=== PATIENT | male | born 1975 | race Hispanic/Latino ===

== ENCOUNTER 2017-05-30 22:19 | Inpatient (IN) ==
[2017-05-30] MEDS ORDERED: NORMAL SALINE 10 ML SYRINGE FLUSH IVP PRN (23:01)
[2017-05-30] MEDS ORDERED: ONDANSETRON 4 MG/2 ML VIAL IVP ONE (23:01)
[2017-05-30] MEDS ORDERED: Sodium Chloride 0.9% 1,000 ML PRIMARY IV ONE (23:01)
[2017-05-30] MEDS ORDERED: MORPHINE SULFATE 4 MG/1 ML IVP ONE (23:01)
[2017-05-30 23:05] LABS: BASOPHILS # (AUTO) 0.06 10*3/UL; BASOPHILS % (AUTO) 0.6 % (0-1); EOSINOPHILS # (AUTO) 0.23 10*3/UL; EOSINOPHILS % (AUTO) 2.1 % (0-8); Hematocrit [HCT] 43.3 % (42.0-52.0); Hemoglobin [HGB] 15.2 g/dL (14.0-18.0); LYMPHOCYTES # (AUTO) 1.55 10*3/uL; MEAN CORPUSCULAR HEMOGLOBIN 31.7 PG (27-31); MEAN CORPUSCULAR HGB CONC 35.1 g/dL (33-37); MEAN CORPUSCULAR VOLUME 90.2 FL (80-90); MEAN PLATELET VOLUME 10.7 FL (7.4-12.2); MONOCYTES # (AUTO) 1.11 10*3/UL (0.3-0.8); MONOCYTES % (AUTO) 10.3 % (5-15); NEUTROPHILS # (AUTO) 7.75 10*3/UL; NEUTROPHILS % (AUTO) 72.3 % (50-80); PLATELET MORPHOLOGY COMMENT NORMAL MORPHOLOGY (NORM); RBC MORPHOLOGY COMMENT NORMAL MORPHOLOGY (NORM); WBC MORPHOLOGY COMMENT NORMAL MORPHOLOGY (NORM)
[2017-05-30 23:06] LABS: BLOOD UREA NITROGEN 12 mg/dL (7-22); SERUM ALBUMIN 4.3 g/dL (3.5-4.8)
--- NOTE | 2017-05-30 23:40 | PDOC ---
Lower Extremity Problem HPI - General Chief Complaint: Lower Extremity Problem/Injury Stated Complaint: possible clot in left leg Date Seen by Provider: 05/30/17 Time Seen by Provider: 22:50 Source: POSITIVE: Patient Exam Limitations: POSITIVE: No limitations Nurse's Notes Reviewed & Considered: Yes - History of Present Illness Initial Comments: The patient is a 41-year-old male who presents to the emergency department with complaints of increased left leg pain and swelling. He had several lesions removed from his left leg per Dr. Jacobo in March. These lesions were identified as panniculitis on biopsy. The wounds themselves never did heal and all of them ended up opening up. He was on some antibiotics for about a month and just finished those about a week ago. Over the past day or 2 he's developed increased pain and swelling to the left leg as well as some redness in the lower leg. Today he states that he has not felt well in general. He has had some subjective chills. He denies fever. He denies chest pain or shortness of breath. He does not have any history of blood clots although his mom apparently has a history of blood clots. He denies any other significant medical history. - Patient Home Medications Home Medications: Home Medications ibuprofen 800 mg tablet 800 mg PO TID PRN #120 tab 05/10/17 - Patient Allergies Allergies/Adverse Reactions: Allergies 3 Allergy/AdvReac Type Severity Reaction Status Date / Time No Known Allergies Allergy Verified 05/30/17 22:28 Past Medical History - heen HEENT History: Denies History Cardiovascular History: Hypertension Additional Cardiovasular History: CP Respiratory History: Denies History Additional Respiratory History: START 1 MONTH AGO Gastrointestinal History: Gallbladder Disease, Other (please comment) Additional Gastrointestinal History: LAP BAND/ Chronic diarrhea Genitourinary History: Denies History Endocrine History: Denies History Musculoskeletal History: Gout Prosthesis or Implant: Yes (LAP BAND) Neurological History: Denies History Blood Disorders: Denies History Psychiatric History: Denies History History of Sexually Transmitted Diseases: No Cancer History: Denies History In Past Year Been Physically Harmed or Verbally Threatened: No History of MDRO: No History of Other Communicable Diseases: No Tobacco Use: Never Smoker Alcohol Use: Occasionally Type of alcohol normally used: Beer In the Past 12 Months, Have Used or Abuse Any Substance: None Previous Surgical History: Yes Type / Date of Surgery: LAP BAND, RUPESH, KNEE, Anesthesia Reactions: No Malignant Hyperthermia: No Significant Family History: Heart disease, Cancer Additional Family History: Lupus Past Medical History Reviewed: Reviewed - No Changes ROS - Limitations ROS Limitations: No Limitations Constitution: REPORTS: Chills. DENIES: Fever Cardiovascular: REPORTS: Denies Cardiac Symptoms. DENIES: Chest Pain Respiratory: REPORTS: Denies Resp Symptoms. DENIES: Shortness Of Breath Neurological: REPORTS: Denies Neuro Symptoms Gastrointestinal: REPORTS: Denies GI Symptoms Lower Ext Problem Exam - General Appearance General Appearance: POSITIVE: Alert, Cooperative, No Acute Distress - Extremities Lower Extremity: POSITIVE: Other (Examination of the left leg reveals 4 open wounds approximately 3 cm in length and 1.5-2 cm in depth one of these is on the lateral aspect of his mid lower leg, he does have surrounding erythema and induration extending to the calf and lateral aspect of his leg, good dorsalis pedis pulse in left foot, all of the wounds have granulation tissue in them with no current drainage) Images - Uploaded Photos Uploaded Photos: Lower Ext Problem Progress - Results Reviewed by me Xrays/CTs/US Reviewed by me: Yes Discussed with Radiologist: Yes Lab Results Reviewed by Me: Yes CBC and BMP: 05/30/17 22:40 05/30/17 22:40 - Patient's Progress MDM / ED Course: Blood cultures and lactate were drawn with initial IV start. The patient appears to have significant cellulitis to the left leg likely related to the current open wounds that he has from previous lesion removal in March. He was started on vancomycin 1.5 g IV. Ultrasound was obtained of the left leg to rule out DVT. This was negative for DVT and did not show any obvious abscess. The patient's blood work reveals normal white count however his CRP is elevated at 6.5. Other lab tests are essentially unremarkable. The patient does have significant cellulitis in the left leg. Decision was made to admit for further treatment. Dr. Baird has agreed to admit the patient in the patient is in agreement with this plan. - Consult Counseled: POSITIVE: Patient, Family, RE: Lab Results, RE: Radiology Results, RE : DX Patient Care Time - Estimated PCT Patient Care Time (In Minutes): 35 Vital Signs - Recent Vital Signs Vital Signs: Vital Signs (Last 8 hours) Temp Pulse Pulse Resp BP Pulse Ox 05/30/17 22:22 97.8 F 96 96 18 144/96 96 - VS Reviewed Vital Signs Reviewed: Yes Discharge Clinical Impression: Cellulitis, leg Discharge Disposition: Admit to Inpatient Condition: Fair Follow Up With: FELECIA CEE [Primary Care Provider] - Date Decision to Admit to Inpatient: 05/31/17 Time Decision to Admit to Inpatient: 00:00
[2017-05-31] MEDS ORDERED: MORPHINE SULFATE 2 MG/1 ML IVP ONE (00:13)
--- NOTE | 2017-05-31 00:14 | DI ---
EXAM: US Duplex Left Lower Extremity Veins CLINICAL HISTORY: Left leg pain and swelling TECHNIQUE: Real-time ultrasound scan of the veins of the left lower extremity with color Doppler flow, spectral waveform analysis and compression. COMPARISON: No relevant prior studies available. FINDINGS: Deep veins: Unremarkable. No DVT in the visualized common femoral, femoral, proximal deep femoral or popliteal veins. The peroneal vein was not visualized. The anterior and posterior tibialis vein are unremarkable. The veins demonstrate normal color flow, are normally compressible, with normal phasic flow and/or augmentation response. Superficial veins: Unremarkable. No thrombus in the visualized great saphenous vein. Soft tissues: No acute findings. No popliteal cyst. IMPRESSION: Normal left lower extremity duplex venous ultrasound.
[2017-05-31] MEDS ORDERED: LIDOCAINE W/ SODIUM BICARB 0.5 ML SYR SUBD PRN (00:28)
[2017-05-31] MEDS ORDERED: ONDANSETRON 4 MG/2 ML VIAL IVP PRN (00:28)
[2017-05-31] MEDS ORDERED: Vancomycin-PHA to Dose IV PRN (00:28)
[2017-05-31] MEDS ORDERED: ACETAMINOPHEN 325 MG TABLET PO PRN (00:28)
[2017-05-31] MEDS ORDERED: MORPHINE SULFATE 4 MG/1 ML IVP PRN (01:14)
[2017-05-31] MEDS: MORPHINE SULFATE 2 MG/1 ML IVP PRN ×2 (02:55→08:31)
[2017-05-31 05:06] LABS: BASOPHILS # (AUTO) 0.05 10*3/UL; BASOPHILS % (AUTO) 0.6 % (0-1); EOSINOPHILS % (AUTO) 4.6 % (0-8); LYMPHOCYTES # (AUTO) 1.64 10*3/uL; MEAN CORPUSCULAR VOLUME 91.3 FL (80-90); MEAN PLATELET VOLUME 11.3 FL (7.4-12.2); MONOCYTES # (AUTO) 0.81 10*3/UL (0.3-0.8); MONOCYTES % (AUTO) 9.3 % (5-15); NEUTROPHILS # (AUTO) 5.82 10*3/UL; NEUTROPHILS % (AUTO) 66.5 % (50-80); RED BLOOD COUNT 4.38 10^6/uL (4.70-6.10)
[2017-05-31 05:08] LABS: PLATELET MORPHOLOGY COMMENT NORMAL MORPHOLOGY (NORM); RBC MORPHOLOGY COMMENT NORMAL MORPHOLOGY (NORM); WBC MORPHOLOGY COMMENT NORMAL MORPHOLOGY (NORM)
--- NOTE | 2017-05-31 07:04 | PDOC ---
HPI - History of Present Illness Date of Service: 05/31/17 Time of Service: 07:00 Chief Complaint: Pain redness swelling of the left leg of 2 days duration History of Present Illness: This is a 41 years old male with medical history significant for history of obesity with previous lap band surgery and recently diagnosed with panniculitis who presented to the hospital with history of left leg pain and redness. back in March he had the surgery for removal of lesion in his left leg by Dr. Jacobo. Initially they thought it they were lipoma but proved to be panniculitis on biopsy. The wound themselves never did heal and all of them ended up opening up. He was put on antibiotics for about a month and finished the course about a week ago. The last 2 days he started to develop increasing pain and swelling of the left leg. Also he noticed the that the leg is hot. He did report fever at home and chills. Because of all the symptoms he came into the ER and ultrasound of the leg was negative for DVT but was found to have cellulitis was given antibiotics and was admitted. He continued to have some pain today in the leg but he thinks some of the redness on the top of the thigh seemed to be improved. The redness mainly now at the back of the left leg. He denied symptoms there is no chest pain no shortness of breath. No nausea no vomiting no diarrhea. Past Medical History Medical History: 1. Gouty arthropathy. 2. Obesity status post gastric band surgery. 3. Septal Panniculitis of the legs Surgical History: 1. Gastric lap band surgery. 2. Cholecystectomy. 3. Knee surgery Pertinent Family History: Father has coronary artery disease, with first event in his 40s. Mother has lupus. Past Social History: Does not smoke. Chews tobacco. Drinks about 3 beers per night, on average although some nights none. . Has 3 children described as healthy. 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 Tobacco Use: Never Smoker Do you dip or chew tobacco: Yes (1 can every 14 days) In the Past 12 Months, Have Used or Abuse Any of the Following Substance: None Alcohol Use: Other (Drinks 2-3 beers a night) Medication / Allergies Home Medications: Home Medications 3 Medication Instructions Recorded Confirmed Type ibuprofen 800 mg tablet 800 mg PO TID PRN #120 tab 05/10/17 05/30/17 Rx Allergies/Adverse Reactions: Allergies 3 Allergy/AdvReac Type Severity Reaction Status Date / Time No Known Allergies Allergy Verified 05/30/17 22:28 Review of Systems - Review of Systems All Systems: Reviewed & No Additional Complaints Except as Stated Exam - Vitals Vital Signs: Vital Signs Temperature 98.4 F Temperature Source Temporal Artery Scan Pulse Rate [Pulse Oximeter 64 Left] Respiratory Rate 18 Blood Pressure [Left Arm] 125/69 Pulse Ox 95 Oxygen Delivery Method Room Air Height 5 ft 4 in Weight 274 lb - General General Appearance: No Acute Distress, Cooperative, Obese - Head Head Exam: Normal Inspection, Atraumatic - Eye Eye Exam: POSITIVE: Normal Appearance - ENT ENT Exam: POSITIVE: Normal Exam - Neck Neck Exam: Normal Inspection - Respiratory Respiratory Exam: POSITIVE: Clear to Auscultation - Bilaterally - Cardiovascular Cardiovascular Exam: POSITIVE: RRR - GI/Abdominal GI/Abdominal Exam: POSITIVE: Normal Bowel Sounds, Non Tender, Non Distended, Soft, No Organomegaly - Rectal Rectal Exam: POSITIVE: Deferred - External Exam: POSITIVE: Deferred - Extremities Additional Extremities Exam Details: Multiple wounds noted to the left leg. Seems to be healing. There is redness to the back of the left leg tender. - Back Back Exam: POSITIVE: Normal Inspection - Neurological Neurological Exam: POSITIVE: Alert, Oriented x 3, CN II-XII Intact, Speech Intact / Clear, Moves All Extremities Equally - Psychiatric Psychiatric Exam: POSITIVE: Normal Affect - Integumentary Integumentary Exam: POSITIVE: Erythema Results - Labs CBC and BMP: 05/31/17 04:05 05/30/17 22:40 Assessment and Plan - Patient Problems (1) Cellulitis, leg Current Visit: Yes Status: Acute Comment: He was given vancomycin the ER think I will put someone Rocephin. We' ll ask physical therapy to do dressing changes. Code(s): L03.119 - Cellulitis of unspecified part of limb (2) DVT prophylaxis Current Visit: Yes Status: Acute Comment: will put him on lovenox.
[2017-05-31] MEDS ORDERED: oxyCODONE-ACETAMINOPHEN 5-325 TAB PO PRN (07:53)
[2017-05-31] MEDS: IBUPROFEN 800 MG TABLET PO PRN ×2 (08:04→19:37)
[2017-05-31] MEDS: ENOXAPARIN SODIUM 40 MG/0.4 ML SYRINGE SUBCUT SCH (08:24)
[2017-05-31] MEDS: cefTRIAXone Inj 2 GM in Sodium Chloride 0.9% 100 ML IV SCH (08:25)
[2017-05-31] MEDS: NORMAL SALINE 10 ML SYRINGE FLUSH IVP PRN (08:25)
--- NOTE | 2017-05-31 14:29 | PTI REPORT ---
Thank you for the referral of Alexei Grider. He was seen on 05/31/17 for an inpatient evaluation secondary to open wounds of the left lower extremity. SUBJECTIVE: The patient is a 41-year-old male who was referred to us today by Dr. Baird secondary to open wounds of his left lower extremity. He had some procedures done several weeks ago by Dr. Jacobo, removing some small tumors in the skin area; he removed about 8 different areas. PAST MEDICAL HISTORY: Past medical history can be found in the patient's medical record. OBJECTIVE FINDINGS: The wounds on his lower extremity have dehisced and opened. They measure approximately 1 inch long x 3/4 of an inch wide, shaped like footballs, and are about 1/2 an inch deep into the tissues. There are three on the lateral side of his leg that look fairly clean and into red tissue; the one more anterior and medially looks like it is drainage and he has a secondary cellulitis and infection that they are treating as an inpatient. ASSESSMENT: The patient has been independent in his dressing changes at home with MediHoney and a cover dressing. We will use a combination of Medihoney on the lateral wounds that continue to look fairly health. The medial one we will dress with Calcium Alginate and Mesalt as it is actively infected. We will determine today whether or not the patient needs BID dressing changes. We will re-check the dressings this afternoon and change if need be. Short-Term Goals: To be met by discharge from inpatient: Patient will promote sterile wound healing. Long-Term Goals: To be met following discharge from inpatient: Patient will be seen as an outpatient for dressing changes 1-2 times per week to keep an eye on things after his discharge. TREATMENT PLAN: Patient will be seen either daily or BID as an inpatient for dressing changes. We will re-check the dressings this afternoon and change if need be. INITIAL TREATMENT: Treatment today consisted of the initial evaluation activities only. ERICH
[2017-05-31] MEDS: HYDROcodone-APAP 5 MG -325 MG TABLET PO PRN ×2 (17:47→20:46)
[2017-06-01] MEDS: HYDROcodone-APAP 5 MG -325 MG TABLET PO PRN ×5 (03:46→20:00)
[2017-06-01] MEDS: IBUPROFEN 800 MG TABLET PO PRN ×2 (03:46→20:01)
[2017-06-01 05:15] LABS: BASOPHILS # (AUTO) 0.07 10*3/UL; BASOPHILS % (AUTO) 1.1 % (0-1); EOSINOPHILS # (AUTO) 0.67 10*3/UL; EOSINOPHILS % (AUTO) 10.3 % (0-8); Hematocrit [HCT] 39.8 % (42.0-52.0); Hemoglobin [HGB] 13.7 g/dL (14.0-18.0); LYMPHOCYTES # (AUTO) 1.63 10*3/uL; MEAN CORPUSCULAR HEMOGLOBIN 31.6 PG (27-31); MEAN CORPUSCULAR HGB CONC 34.4 g/dL (33-37); MEAN CORPUSCULAR VOLUME 91.9 FL (80-90); MEAN PLATELET VOLUME 11.1 FL (7.4-12.2); MONOCYTES # (AUTO) 0.75 10*3/UL (0.3-0.8); MONOCYTES % (AUTO) 11.5 % (5-15); NEUTROPHILS # (AUTO) 3.36 10*3/UL; NEUTROPHILS % (AUTO) 51.6 % (50-80); RED BLOOD COUNT 4.33 10^6/uL (4.70-6.10)
[2017-06-01 05:27] LABS: PLATELET MORPHOLOGY COMMENT NORMAL MORPHOLOGY (NORM); RBC MORPHOLOGY COMMENT NORMAL MORPHOLOGY (NORM); WBC MORPHOLOGY COMMENT NORMAL MORPHOLOGY (NORM)
[2017-06-01] MEDS: cefTRIAXone Inj 2 GM in Sodium Chloride 0.9% 100 ML IV SCH (06:42)
[2017-06-01] MEDS: NORMAL SALINE 10 ML SYRINGE FLUSH IVP PRN (06:43)
--- NOTE | 2017-06-01 07:27 | PDOC(PROG) ---
Date and Time of Service: 06/01/2017 7:28 AM Interval History: Subjective Patient continued to complain from pain in the left leg but it's not as bad as before. He thinks the redness also improved. The chills that he had when he came in also resolved. He is able to put more weight on his foot now. Objective : Data - Labs CBC and BMP: 06/01/17 04:34 05/30/17 22:40 Objective : Exam - General General Appearance: No Acute Distress, Cooperative - Head Head Exam: Normal Inspection - Eye Eye Exam: Normal Appearance - ENT ENT Exam: Normal Exam - Neck Neck Exam: Normal Inspection - Respiratory Respiratory Exam: Clear to Auscultation - Bilaterally - Cardiovascular Cardiovascular Exam: RRR - GI/Abdominal GI/Abdominal Exam: Normal Bowel Sounds, Non Tender, Non Distended, Soft, No Organomegaly - Rectal Rectal Exam: Deferred - External Exam: Deferred Exam: Deferred - Extremities Additional Extremities Exam Details: Multiple open lesions on the left leg noted. Most of them are dry. The redness at the back of the left calf seem to be improved. It is not as tender as yesterday. - Back Back Exam: Normal Inspection - Neurological Neurological Exam: Alert, Oriented x 3, CN II-XII Intact, Speech Intact / Clear , Moves All Extremities Equally - Psychiatric Psychiatric Exam: Normal Affect Assessment and Plan - Patient Problems (1) Cellulitis, leg Current Visit: Yes Status: Acute Comment: Continue Rocephin. I don't think we'll continue with vancomycin, blood culture is negative. Ultrasound of the leg was negative. Code(s): L03.119 - Cellulitis of unspecified part of limb (2) DVT prophylaxis Current Visit: Yes Status: Acute Comment: We put him on Lovenox continue
[2017-06-01] MEDS: ENOXAPARIN SODIUM 40 MG/0.4 ML SYRINGE SUBCUT SCH (08:12)
--- NOTE | 2017-06-01 17:24 | PT.PROG ---
Progress Note Progress Note: S. Patient stated that the wounds themselves don't hurt however the back of his calf is very sore. O. Patient had dressings removed then cleaned with 4x4 and wound cleanser then redressed with medihoney, telfa, and tegaderm. Patient was left in bed with alarm and call light. A. Patient's wounds appear to be clean and have slight serous discharge. Patient would benefit from outpatient wound care 1x a week with self dressing change the rest of the week. P. continue POC.
[2017-06-01] MEDS: DOCUSATE 100 MG CAPSULE PO PRN (20:01)
[2017-06-02] MEDS: HYDROcodone-APAP 5 MG -325 MG TABLET PO PRN ×5 (00:52→17:24)
[2017-06-02] MEDS: IBUPROFEN 800 MG TABLET PO PRN ×2 (04:57→20:39)
[2017-06-02] MEDS: cefTRIAXone Inj 2 GM in Sodium Chloride 0.9% 100 ML IV SCH (08:17)
[2017-06-02] MEDS: NORMAL SALINE 10 ML SYRINGE FLUSH IVP PRN (08:18)
[2017-06-02] MEDS: DOCUSATE 100 MG CAPSULE PO PRN ×2 (09:12→20:39)
[2017-06-02] MEDS: ENOXAPARIN SODIUM 40 MG/0.4 ML SYRINGE SUBCUT SCH (09:12)
--- NOTE | 2017-06-02 09:16 | PDOC(PROG) ---
Date and Time of Service: 06/02/2017 9:13 AM Interval History: Subjective He feels somewhat better, the pain is not as bad as before. The redness also seemed to be improving. Objective : Data - Labs CBC and BMP: 06/01/17 04:34 05/30/17 22:40 Objective : Exam - General General Appearance: No Acute Distress, Cooperative, Obese - Head Head Exam: Normal Inspection - Eye Eye Exam: Normal Appearance - ENT ENT Exam: Normal Exam - Neck Neck Exam: Normal Inspection - Respiratory Respiratory Exam: Clear to Auscultation - Bilaterally - Cardiovascular Cardiovascular Exam: RRR - GI/Abdominal GI/Abdominal Exam: Normal Bowel Sounds, Non Tender, Non Distended, Soft, No Organomegaly - Rectal Rectal Exam: Deferred - External Exam: Deferred Exam: Deferred - Extremities Additional Extremities Exam Details: Multiple wounds Ur of the left leg covered with dressing. Redness above the back of the left leg seemed to be much improved. There is still some faint redness in the front. Tenderness is less than before also. - Back Back Exam: Normal Inspection - Neurological Neurological Exam: Alert, Oriented x 3, CN II-XII Intact, Speech Intact / Clear - Psychiatric Psychiatric Exam: Normal Affect Assessment and Plan - Patient Problems (1) Cellulitis, leg Current Visit: Yes Status: Acute Comment: I think we'll continue with current antibiotics. Blood culture remains negative. He is making improvement. Home either tomorrow or the day after, depending on how the leg look. Based on my discussion with physical therapy they want to see him once a week to check on the progress of the wound healing. Code(s): L03.119 - Cellulitis of unspecified part of limb (2) DVT prophylaxis Current Visit: Yes Status: Acute Comment: He is on Lovenox
--- NOTE | 2017-06-02 10:34 | PT.PROG ---
Progress Note Progress Note: S. Patient reports 3/10 left calf pain. O. Patient had dressings removed then cleaned with 4x4 and wound cleanser then redressed with medihoney, telfa, and tegaderm. Patient was left in bed with alarm and call light. A. Patient's wounds appear to be clean and have slight serous discharge. Patient would benefit from outpatient wound care 1x a week with self dressing change the rest of the week. P. continue POC.
[2017-06-03] MEDS: IBUPROFEN 800 MG TABLET PO PRN ×2 (04:38→12:58)
[2017-06-03 06:23] LABS: BASOPHILS # (AUTO) 0.07 10*3/UL; BASOPHILS % (AUTO) 1.2 % (0-1); EOSINOPHILS # (AUTO) 0.42 10*3/UL; EOSINOPHILS % (AUTO) 7.2 % (0-8); Hematocrit [HCT] 38.9 % (42.0-52.0); Hemoglobin [HGB] 13.9 g/dL (14.0-18.0); LYMPHOCYTES # (AUTO) 1.56 10*3/uL; MEAN CORPUSCULAR HGB CONC 35.7 g/dL (33-37); MEAN CORPUSCULAR VOLUME 89.4 FL (80-90); MEAN PLATELET VOLUME 10.7 FL (7.4-12.2); MONOCYTES % (AUTO) 10.3 % (5-15); NEUTROPHILS # (AUTO) 3.14 10*3/UL; NEUTROPHILS % (AUTO) 53.8 % (50-80); RED BLOOD COUNT 4.35 10^6/uL (4.70-6.10)
[2017-06-03 06:35] LABS: BLOOD UREA NITROGEN 14 mg/dL (7-22)
[2017-06-03 06:36] LABS: PLATELET MORPHOLOGY COMMENT NORMAL MORPHOLOGY (NORM); RBC MORPHOLOGY COMMENT NORMAL MORPHOLOGY (NORM); WBC MORPHOLOGY COMMENT NORMAL MORPHOLOGY (NORM)
[2017-06-03] MEDS: cefTRIAXone Inj 2 GM in Sodium Chloride 0.9% 100 ML IV SCH (07:47)
[2017-06-03] MEDS: ENOXAPARIN SODIUM 40 MG/0.4 ML SYRINGE SUBCUT SCH (09:30)
--- NOTE | 2017-06-03 10:08 | PDOC(PROG) ---
Interval History: Patient is doing much better legs a little left leg looks less red still little bit swollen compared to the right one but DVT ultrasound was negative. No other complaints planning on going home in the morning Objective : Data - Labs CBC and BMP: 06/03/17 04:41 06/03/17 04:41 Objective : Exam - General General Appearance: Cooperative - Respiratory Respiratory Exam: Clear to Auscultation - Bilaterally, Breathing Non Labored, Normal To Percussion, Normal to Percussion and Palpation - Cardiovascular Cardiovascular Exam: RRR, No Murmur, No Clicks, No Gallops, No Rubs, PMI Non- Displaced - GI/Abdominal GI/Abdominal Exam: Normal Bowel Sounds, Non Tender, Non Distended, Soft, No Masses, No Hepatomegaly, No Splenomegaly, No Organomegaly - Extremities Extremities Exam: No Clubbing Present, No Edema Present - Neurological Neurological Exam: Alert, Oriented x 3, Reflexes Normal, Normal Gait, CN II-XII Intact, No Facial Droop, Moves All Extremities Equally Assessment and Plan - Patient Problems (1) Cellulitis, leg Current Visit: Yes Status: Acute Comment: labs look great no left shift . cont wound detention on po abx keflex 1 gram po tid Will change control analyst to Ancef 2 g IV every 8 Code(s): L03.119 - Cellulitis of unspecified part of limb (2) DVT prophylaxis Current Visit: Yes Status: Acute Comment: Lovenox
[2017-06-03] MEDS ORDERED: ceFAZolin 1 GM VIAL ONE (11:21)
[2017-06-03] MEDS: ceFAZolin Inj 2 GM in Sodium Chloride 0.9% 100 ML IV SCH ×2 (11:27→19:19)
[2017-06-03 17:02] VITALS: O2SAT 95
--- NOTE | 2017-06-03 19:22 | DCSUMMARY ---
Hospitalization Summary Hospital Course: Final Discharge Diagnosis: Current Visit Problems Problem Status Onset Code Cellulitis, leg Acute L03.119 DVT prophylaxis Acute Diagnostic Data, Laboratory Data, and Procedures of Signifigance: CBC and BMP 06/03/17 04:41 06/03/17 04:41 History and Physical pertinent to Admission: Past Medical History Medical History: 1. Gouty arthropathy. 2. Obesity status post gastric band surgery. 3. Septal Panniculitis of the legs Surgical History: 1. Gastric lap band surgery. 2. Cholecystectomy. 3. Knee surgery Pertinent Family History: Father has coronary artery disease, with first event in his 40s. Mother has lupus. Past Social History: Does not smoke. Chews tobacco. Drinks about 3 beers per night, on average although some nights none. . Has 3 children described as healthy. 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 Tobacco Use: Never Smoker Do you dip or chew tobacco: Yes (1 can every 14 days) In the Past 12 Months, Have Used or Abuse Any of the Following Substance: None Alcohol Use: Other (Drinks 2-3 beers a night) Course of Hospitalization: This very nice 41-year-old gentleman with past medical history significant for obesity with previous lap band surgery. Presented to the hospital with the left leg pain and redness in March he had surgery for removal of lipomas from Dr. domonique Polanco's but showed to be panniculitis on biopsy all the wounds in that up opening up and never did heal he was put on antibiotic for about one month and finished a course about one week ago before admission over the last 2 days before admission started having some pain and swelling in the left leg he was negative for DVT admitted for cellulitis was started on IV ceftriaxone. His labs look fine today is his leg still looks mildly swollen this morning but at this evening when I did my evening rounds it was totally within normal limits just like his other leg and patient will really like to be discharged home tonight and in lieu of the storm that is common in he was scheduled to be discharged in the morning on by mouth Keflex 1 g twice a day I did give him a a few doses of the Ancef 2 g he will get one last IV dose at 7 PM and then be discharged home. Patient is very happy that he is going home he will follow-up with his primary care physician and Dr. domonique Polanco as an outpatient prescription was faxed to [facility]. His kids are in the room and will be taking him home he is in stable improved condition On the date of discharge, the patient was examined: Gen.: [No acute distress, alert, nontoxic] Heart: [Regular rate and rhythm, no murmurs, clicks, gallops, or rubs] Lungs: [Clear to auscultation bilaterally, breathing is nonlabored] Abdomen/GI: [Normal tones on auscultation, soft, nontender, nondistended] Musculoskeletal/extremities: [No clubbing, cyanosis, or edema] Vitals reviewed and are listed below Vital Signs (24 hrs) Temp Pulse Resp BP Pulse Ox 06/03/17 17:00 98.8 F 74 17 143/83 95 06/03/17 13:00 98.0 F 63 16 133/93 94 06/03/17 08:16 97.6 F 54 L 18 110/59 95 06/03/17 04:40 90 06/03/17 04:38 97.2 F 65 16 125/78 96 06/02/17 19:47 92 Assessment and Plan: 1. As per discharge assessments above 2. Disposition: Home 3. Condition on discharge, stable and improved. 4. Diet: regular diet 5. Activities: resume normal activities 6. Follow-Up: 1. [PCP] 2. 7. Medications at the Time of Discharge: Home Medications 3 Medication Instructions Recorded Confirmed Type Acetaminophen [Tylenol] 650 mg PO Q6H PRN tab 06/03/17 Rx Cephalexin [Keflex] 1,000 mg PO Q12H #14 cap 06/03/17 Rx 8. Time, care, counseling and coordination of care for this discharge is greater than 30 minutes. Exam - Vitals Vital Signs: Vital Signs Temperature 98.8 F Temperature Source Temporal Artery Scan Pulse Rate [Telemetry] 68 Pulse Rate [Pulse Oximeter 74 Left] Respiratory Rate 17 Blood Pressure [Right Arm] 143/83 Blood Pressure [Left Arm] 117/68 Pulse Ox 95 Oxygen Delivery Method Room Air Height 5 ft 4 in Weight 275 lb 9.6 oz Patient Problems - Patient Problem List (1) Cellulitis, leg Current Visit: Yes Status: Acute Code(s): L03.119 - Cellulitis of unspecified part of limb Category: Medical (2) DVT prophylaxis Current Visit: Yes Status: Acute Category: Medical
[2017-06-03 19:47] VITALS: BP 128/83; RESP 20; TEMP 97
--- NOTE | 2017-06-04 12:02 | OT AM DAY ---
Diagnosis : Open Wounds Left Lower Extremity AM - Occupational Therapy S: The patient reports he feels like his wounds are coming along. O: The patient's wounds were cleansed with 4X4s and wound care spray. The wounds were then redressed with Medihoney, Telfa pads, and Tegaderm. A: The patient is making gains. P: Continue seeing patient BID during the week and one time per day over the weekend until discharge. LEYLAD
== END 2017-06-03 20:05 | disposition home or self-care (01) | DRG 603 ==
LOC: ER 22:19 → MED/SURG 05-31 00:18
PROVIDERS: ADMIT Internal Medicine; ATTEND Internal Medicine